=== PATIENT | female | born 1990 | race Caucasian/White ===

== ENCOUNTER 2019-06-24 07:50 | Emergency (ER) | payer MEDICAID ==
[~2019-06-24] VITALS: Ht 160 cm; Wt 68.0 kg
[2019-06-24 08:03] VITALS: BP 115/73
[2019-06-24] MEDS ORDERED: DexAMETHasone SOD PHOS 10MG/1ML VIAL INJ IM ONE (08:45)
== END 2019-06-24 09:06 | disposition home or self-care (01) ==
LOC: ER 07:50
DX: R05 Cough (principal); R06.02 Shortness of breath; R50.9 Fever, unspecified; R07.89 Other chest pain; R42 Dizziness and giddiness; R51 Headache; J45.909 Unspecified asthma, uncomplicated
CPT/HCPCS: 71046; 96372; 99283; J1100